=== PATIENT | female | born 1965 | race Caucasian/White ===

== ENCOUNTER 2018-05-25 05:36 | Day surgery (SDC) | payer OTHER ==
[2018-05-25] MEDS ORDERED: ACETAMINOPHEN 500 MG TAB PO (06:00)
[2018-05-25] MEDS: ACETAMINOPHEN 500 MG TAB PO (06:42)
[2018-05-25] MEDS: CEFAZOLIN 2 GM/50 ML (PMX) 50 ML IVPB (06:57)
[2018-05-25] MEDS ORDERED: DESFLURANE 15 MIN (07:00)
[2018-05-25] MEDS ORDERED: CEFAZOLIN 1 GM INJ (07:26)
[2018-05-25] MEDS ORDERED: PROPOFOL 40 ML (07:26)
[2018-05-25] MEDS ORDERED: LIDOCAINE 2% (SDV) 5 ML INJ (07:26)
[2018-05-25] MEDS ORDERED: FENTAnyl 50 MCG/ML VIAL (07:26)
[2018-05-25] MEDS ORDERED: ONDANSETRON 4 MG INJ (07:27)
[2018-05-25] MEDS ORDERED: DEXAMETHASONE 4 MG/ML 5 ML INJ (07:27)
[2018-05-25] MEDS ORDERED: FAMOTIDINE 20 MG INJ (07:27)
[2018-05-25] MEDS ORDERED: morphine (1 MG/ML) 10ML SYRINGE IV ×2 (07:30)
[2018-05-25] MEDS ORDERED: ONDANSETRON 4 MG INJ IV (07:30)
[2018-05-25] MEDS ORDERED: OXYCODONE/ACETAMINOPHEN (5/325) TAB PO ×2 (07:30)
[2018-05-25] MEDS ORDERED: LABETALOL HCL 20MG INJ IV (07:30)
[2018-05-25] MEDS ORDERED: FENTAnyl 50 MCG/ML VIAL IV ×2 (07:30)
[2018-05-25] MEDS ORDERED: DIPHENHYDRAMINE 50 MG INJ IV (07:30)
[2018-05-25] MEDS ORDERED: MEPERIDINE 25 MG INJ IV (07:30)
[2018-05-25] MEDS ORDERED: HYDROmorphONE 1 MG/5 ML IV SYRINGE IV ×2 (07:30)
[2018-05-25] MEDS ORDERED: ALBUTEROL 0.083% (NEB) 2.5 MG/3 ML AMP HHN (07:30)
[2018-05-25 07:37] LABS: ADD MAN DIFF? NO
[2018-05-25 07:38] LABS: WHITE BLOOD COUNT 6.6 10^3/ul (4.8-10.8)
[2018-05-25 07:38] LABS: ABNORMAL IP MESSAGE 1; BASOPHIL # 0.1 10^3/ul (0.0-0.1); BASOPHILS % 0.9 % (0.0-2.0); EOSINOPHILS # 0.1 10^3/ul (0.0-0.5); EOSINOPHILS % 1.4 % (0.0-7.0); HEMATOCRIT 26.3 % (37.0-47.0); HEMOGLOBIN 7.5 g/dl (12.0-16.0); LYMPHOCYTES # 1.1 10^3/ul (0.8-2.9); LYMPHOCYTES % 16.1 % (15.0-51.0); MEAN CORPUSCULAR HEMOGLOBIN 19.8 pg (29.0-33.0); MEAN CORPUSCULAR HGB CONC 28.5 g/dl (32.0-37.0); MEAN CORPUSCULAR VOLUME 69.6 fl (82.0-101.0); MEAN PLATELET VOLUME 12.3 fl (7.4-10.4); MONOCYTE # 0.6 10^3/ul (0.3-0.9); MONOCYTES % 8.4 % (0.0-11.0); NEUTROPHIL # 4.8 10^3/ul (1.6-7.5); NEUTROPHILS % 72.9 % (39.0-77.0); PLATELET COUNT 414 10^3/UL (140-415); RED BLOOD COUNT 3.78 10^6/ul (4.20-5.40); RED CELL DISTRIBUTION WIDTH 17.6 % (11.5-14.5)
[2018-05-25 07:41] LABS: HOLD TRANSMISSIONS 1; POSITIVE DIFF @See below
[2018-05-25 08:22] LABS: ANISOCYTOSIS 1+ (0-0); HYPOCHROMASIA 3+ (0-0); MICROCYTOSIS 1+ (0-0)
[2018-05-25] MEDS: HYDROmorphONE 1 MG/5 ML IV SYRINGE IV (09:19)
== END 2018-05-25 10:40 | disposition home or self-care (01) ==
LOC: SDS 05:36
DX: D25.0 Submucous leiomyoma of uterus (principal); D64.9 Anemia, unspecified
CPT/HCPCS: 58561; 84703; 85025; 86850; 86900; 86901; 88305; 93005